=== PATIENT | female | born 1955 | race Hispanic/Latino ===

== ENCOUNTER 2017-06-03 09:06 | Emergency (ER) | payer OTHER ==
[2017-06-03 09:26] VITALS: O2SAT 97
[2017-06-03] MEDS ORDERED: Fluorescein 1 mg Ophthalmic Strip OU STA (09:46)
[2017-06-03] MEDS ORDERED: Tetracaine 0.5% Ophth (OR ONLY) OU STA (09:46)
--- NOTE | 2017-06-03 09:46 | C.PDOC ---
History Of Present Illness 62 year old female presents to the ED for evaluation of worsening left eye pain x 1 week. Patient states she had eye pain upon waking up x 1 week and symptoms would resolve. Patient states onset was last night while watching TV in lighted room that was more intense and prolonged than usual. Denies vision loss. Complaining of FB sensation. Denies trauma, discharge, swelling, redness, and other associated symptoms. Reports using glasses. WORSENING L EYE PAIN X 1 WEEK. PS HAD EYE PAIN IN L EYE UPON WAKENING X 1 WEEK, WOULD RESOLVE. ONSET LAST NIGHT WHILE WATCHING TV IN LIGHTED ROOM MORE INTENSE AND PROLONGED THAN USUAL. NO VISION LOSS. CO FB SENSATION. DENIES TRAUMA, DC, SWELLING, REDNESS, OTHER ASSOC SX. USES EYEGLASSES EXAM MILD DIST NONTOXIC HEENT R EYE/PERIORB AREA WNL; L EYE: +CONJ INJECTION W WATERY DC, PHOTOPHOBIA; EOMI; LIMITED FULL EXAM DUE TO PAIN. REMAINDER NEG Time Seen by Provider: 06/03/17 09:41 Chief Complaint (Nursing): ENT Problem History Per: Patient History/Exam Limitations: no limitations Onset/Duration Of Symptoms: Other (1 week) Current Symptoms Are (Timing): Still Present Injury To Eye?: No Quality: "Pain" Wears Contact Lens?: No Associated Symptoms: Pain. denies: Decreased Vision Additional History Per: Patient Past Medical History Reviewed: Historical Data, Nursing Documentation, Vital Signs Vital Signs: Last Vital Signs Temp 97.8 F 06/03/17 10:13 Pulse 78 06/03/17 10:13 Resp 16 06/03/17 10:13 BP 167/87 H 06/03/17 10:13 Pulse Ox 97 06/03/17 17:15 - Medical History PMH: No Chronic Diseases Surgical History: Coronary Stent Family History: States: Unknown Family Hx - Social History Hx Alcohol Use: No Hx Substance Use: No - Immunization History Hx Tetanus Toxoid Vaccination: No Hx Influenza Vaccination: No Hx Pneumococcal Vaccination: No Review Of Systems Eyes: Positive for: Other (left eye pain. no trauma, discharge, swelling, redness ) Physical Exam - Physical Exam Appears: Non-toxic, Other (in mild distress ) Skin: Normal Color, Warm, Dry Head: Atraumatic, Normacephalic Eye(s): bilateral: EOMI, right: Normal Inspection (periorbital region within normal limits ), left: Other (conjunctival injection with watery discharge and photophobia. limited full exam due to pain ) Oral Mucosa: Moist Neck: Supple Neurological/Psych: Oriented x3, Normal Speech, Normal Cognition ED Course And Treatment O2 Sat by Pulse Oximetry: 97 (on RA) Pulse Ox Interpretation: Normal Reevaluation Time: 10:13 Reassessment Condition: Improved (VITALS IMPROVED. PT ADVISED NEED FOR HTN EVAL. ) Disposition Counseled Patient/Family Regarding: Diagnosis, Need For Followup, Rx Given - Disposition Referrals: [facility]Provider Group] [facility] [Outside] [facility] [Outside] Disposition: HOME/ ROUTINE Disposition Time: 10:10 Condition: IMPROVED Prescriptions: Polymyxin/Trimethoprim Sulfate [Polytrim Ophth Soln] 1 drop OD Q3H #1 bottle Instructions: Corneal Abrasion (ED), Hypertension (ED) Forms: [facility] (Bhutanese), Work Excuse - Clinical Impression Clinical Impression: Corneal abrasion - Scribe Statement The provider has reviewed the documentation as recorded by the Scribe (Lisa Haro) Provider Attestation: All medical record entries made by the Scribe were at my direction and personally dictated by me. I have reviewed the chart and agree that the record accurately reflects my personal performance of the history, physical exam, medical decision making, and the department course for this patient. I have also personally directed, reviewed, and agree with the discharge instructions and disposition. Procedures - Eye Procedure Alcaine Drops Administered: Yes (TETRACAINE) Eye Irrigated w/ Saline (ccs): 10 Progress: S/P FLUORESCEIN +CORNEAL ABRASION MIDDLE CORNEA. NO FB. NO VITREOUS LEAK. EYE IRRIGATED W NS.PT TOLERATED WELL
[2017-06-03] MEDS ORDERED: Ophthalmic Irrigation, Soln OU ONE (09:48)
[2017-06-03] MEDS ORDERED: Fluorescein 1 mg Ophthalmic Strip ONE (09:52)
[2017-06-03] MEDS ORDERED: Tetracaine 0.5% Ophth (OR ONLY) ONE (09:53)
[2017-06-03] MEDS ORDERED: Aluminum Hydroxide/Magnesium Hydroxide Susp (30 mL) PO STA (10:08)
[2017-06-03] MEDS ORDERED: Aluminum Hydroxide/Magnesium Hydroxide Susp (30 mL) ONE (10:10)
[2017-06-03 10:14] VITALS: BP 167/87; PULSE 78; RESP 16; TEMP 97.8
== END 2017-06-03 10:19 | disposition home or self-care (01) ==
LOC: C.ER 09:06
DX: S05.02XA Injury of conjunctiva and corneal abrasion without foreign body, left eye, initial encounter (principal); X58.XXXA Exposure to other specified factors, initial encounter